=== PATIENT | male | born 1965 | race Caucasian/White ===

== ENCOUNTER → 2020-11-08 | Outpatient (CLI) | payer OTHER ==
[~2020-11-08] MED LIST: ASPIRIN EC81 MG PO; ATORVASTATIN CA40 MG PO; BREO ELLIPTA 21 EACH INH; CELECOXIB200 MG PO; COZAAR 50MG TAB50 MG PO; FLEXERIL 10 MG10 MG PO; GABAPENTIN400 MG PO; IPRAT-ALBUT 0.5-3 ML NEB; ISOSORBIDE MONO60 MG PO; K-DUR TAB 10 M10 MEQ PO; LASIX 40 MG TAB40 MG PO; LASIX20 MG PO; LIORESAL TAB 1010 MG PO; LOPRESSOR 25 MG25 MG PO; MEDROL DOSEPAK 24 MG PO; METFORMIN HCL500 MG PO; MONTELUKAST SOD10 MG PO; NORCO 7.5-3251 EACH PO; NORVASC5 MG PO; OXYCODONE HCL15 MG PO; PANTOPRAZOLE SO40 MG PO; POTASSIUM CHLO10 ME1 PO; PREDNISONE 50 M50 MG PO; PREDNISONE10 MG PO; TAMIFLU75 MG PO; THEOPHYLLINE400 MG PO; VITAMIN D21250 MCG PO; ZITHROMAX250 MG PO
== END ==
LOC: HEART 5 10:57
DX: J45.40 Moderate persistent asthma, uncomplicated (principal); R94.2 Abnormal results of pulmonary function studies
CPT/HCPCS: 94010; 95012

== ENCOUNTER → 2021-01-13 | Outpatient (CLI) | payer OTHER | LOC: HEART 5 12:01 | DX: J45.50 Severe persistent asthma, uncomplicated (principal); R94.2 Abnormal results of pulmonary function studies | CPT/HCPCS: 94060; 95012 ==

== ENCOUNTER 2021-01-22 21:15 | Observation (INO) | payer OTHER ==
[~2021-01-22] VITALS: Ht 175.3 cm; Wt 94.8 kg
[~2021-01-22 21:15] MED LIST changes: -ASPIRIN EC81 MG PO; -COZAAR 50MG TAB50 MG PO; -ISOSORBIDE MONO60 MG PO; -K-DUR TAB 10 M10 MEQ PO; -LASIX20 MG PO; -METFORMIN HCL500 MG PO; -NORVASC5 MG PO; -PREDNISONE10 MG PO; -THEOPHYLLINE400 MG PO; -VITAMIN D21250 MCG PO
[2021-01-23 00:21] LABS: HEMOGLOBIN 14.5 gm/dl (14.0-17.5); RED BLOOD COUNT 4.98 M/UL (4.20-5.50); WHITE BLOOD COUNT 8.6 K/UL (4.5-11.0)
[2021-01-23 00:29] LABS: BUN/CREATININE RATIO 15 (0-10)
[2021-01-23] MEDS ORDERED: MEDROL DOSEPAK 24 MG PO (09:35)
== END 2021-01-23 15:30 | disposition home or self-care (01) ==
LOC: ER1 21:15 → CDU 01-23 01:09 → PROG CARE 01-23 01:09
PROVIDERS: Physician Assistant; ADMIT Internal Medicine
DX: J45.901 Unspecified asthma with (acute) exacerbation (principal); R07.89 Other chest pain; R09.02 Hypoxemia; I10 Essential (primary) hypertension; E11.9 Type 2 diabetes mellitus without complications; Z20.822 Contact with and (suspected) exposure to COVID-19; Z95.5 Presence of coronary angioplasty implant and graft; Z99.81 Dependence on supplemental oxygen; Z88.8 Allergy status to other drugs, medicaments and biological substances; Z79.891 Long term (current) use of opiate analgesic; Z79.51 Long term (current) use of inhaled steroids; Z79.1 Long term (current) use of non-steroidal anti-inflammatories (NSAID); Z79.899 Other long term (current) drug therapy
CPT/HCPCS: 0240U; 71045; 80053; 82550; 82553; 82962; 83874; 83880; 84484; 85025; 85379; 93005; 94640; 94664; 94760; 96374; 96376; 99285; G0378; J2920; J2930

== ENCOUNTER 2021-03-09 13:56 | Inpatient (IN) | payer OTHER ==
[~2021-03-09] VITALS: Ht 175.3 cm; Wt 130.6 kg
[2021-03-09 15:13] LABS: HEMOGLOBIN 13.7 gm/dl (14.0-17.5); RED BLOOD COUNT 4.94 M/UL (4.20-5.50); WHITE BLOOD COUNT 7.7 K/UL (4.5-11.0)
[2021-03-09 15:23] LABS: BUN/CREATININE RATIO 13 (0-10)
[2021-03-09] MEDS ORDERED: METFORMIN HCL500 MG PO (19:46)
[2021-03-09] MEDS ORDERED: VITAMIN D21250 MCG PO (19:46)
[2021-03-09] MEDS ORDERED: LASIX20 MG PO (19:48)
[2021-03-09] MEDS ORDERED: K-DUR TAB 10 M10 MEQ PO (19:49)
[2021-03-09] MEDS ORDERED: ISOSORBIDE MONO60 MG PO (20:00)
[2021-03-09] MEDS ORDERED: NORVASC5 MG PO (20:01)
[2021-03-09] MEDS ORDERED: THEOPHYLLINE400 MG PO (20:03)
[2021-03-09] MEDS ORDERED: ASPIRIN EC81 MG PO (20:04)
[2021-03-09] MEDS ORDERED: COZAAR 50MG TAB50 MG PO (20:05)
[2021-03-10 05:27] LABS: HEMOGLOBIN 14.1 gm/dl (14.0-17.5); RED BLOOD COUNT 4.9 M/UL (4.20-5.50)
[2021-03-10 05:40] LABS: BUN/CREATININE RATIO 17 (0-10)
[2021-03-11 04:01] LABS: RED BLOOD COUNT 4.81 M/UL (4.20-5.50)
[2021-03-11 04:03] LABS: WHITE BLOOD COUNT 16.3 K/UL (4.5-11.0)
[2021-03-11 04:47] LABS: BUN/CREATININE RATIO 17 (0-10)
[2021-03-12 06:52] LABS: BUN/CREATININE RATIO 22 (0-10)
[2021-03-12] MEDS ORDERED: PREDNISONE10 MG PO (12:02)
== END 2021-03-12 13:17 | disposition home or self-care (01) | DRG 189 ==
LOC: ER1 13:56 → CDU 16:31 → MED SURG 4 17:40
PROVIDERS: Internal Medicine; Physician Assistant; Preventive Medicine Occupational Medicine; ADMIT Internal Medicine
DX: J96.01 Acute respiratory failure with hypoxia (principal); J45.51 Severe persistent asthma with (acute) exacerbation; G47.33 Obstructive sleep apnea (adult) (pediatric); E11.9 Type 2 diabetes mellitus without complications; I10 Essential (primary) hypertension; G89.29 Other chronic pain; Z20.822 Contact with and (suspected) exposure to COVID-19; E66.01 Morbid (severe) obesity due to excess calories; D72.828 Other elevated white blood cell count; T38.0X5A Adverse effect of glucocorticoids and synthetic analogues, initial encounter; Z79.82 Long term (current) use of aspirin; Z88.8 Allergy status to other drugs, medicaments and biological substances; Z79.4 Long term (current) use of insulin; Z82.49 Family history of ischemic heart disease and other diseases of the circulatory system; Z80.1 Family history of malignant neoplasm of trachea, bronchus and lung
CPT/HCPCS: 0240U; 36415; 36600; 71045; 80048; 80053; 80198; 82550; 82553; 82803; 82962; 83605; 83690; 83874; 83880; 84484; 85025; 85652; 86140; 93005; 94640; 94760; 96365; 96375; 99285; J0696; J1650; J2920; J2930

== ENCOUNTER 2021-07-26 15:09 | Emergency (ER) | payer OTHER ==
[~2021-07-26 15:09] MED LIST changes: +ASPIRIN EC81 MG PO; +COZAAR 50MG TAB50 MG PO; +ISOSORBIDE MONO60 MG PO; +K-DUR TAB 10 M10 MEQ PO; +LASIX20 MG PO; +METFORMIN HCL500 MG PO; +NORVASC5 MG PO; +PREDNISONE10 MG PO; +THEOPHYLLINE400 MG PO; +VITAMIN D21250 MCG PO
[2021-07-26 15:59] LABS: HEMOGLOBIN 15.3 gm/dl (14.0-17.5); RED BLOOD COUNT 5.13 M/UL (4.20-5.50); WHITE BLOOD COUNT 8.6 K/UL (4.5-11.0)
[2021-07-26 17:11] LABS: BUN/CREATININE RATIO 17 (0-10)
== END 2021-07-26 20:43 | disposition home or self-care (01) ==
LOC: ER1 15:09
PROVIDERS: Physician Assistant
DX: R07.9 Chest pain, unspecified (principal); R60.0 Localized edema; R79.1 Abnormal coagulation profile; I11.0 Hypertensive heart disease with heart failure; I50.9 Heart failure, unspecified; Z90.89 Acquired absence of other organs; Z88.8 Allergy status to other drugs, medicaments and biological substances
CPT/HCPCS: 71045; 80053; 82550; 82553; 83874; 83880; 84484; 85025; 85379; 93005; 96372; 99285; J1650; Q9967

== ENCOUNTER → 2021-07-27 | Outpatient (CLI) | payer OTHER | LOC: US 10:03 | DX: R60.0 Localized edema (principal); R79.89 Other specified abnormal findings of blood chemistry | CPT/HCPCS: 93971 ==

== ENCOUNTER → 2022-01-19 | Outpatient (CLI) | payer OTHER | LOC: HEART 5 11:19 | DX: J45.50 Severe persistent asthma, uncomplicated (principal) | CPT/HCPCS: 94060; 95012 ==